=== PATIENT | female | born 1970 | race Caucasian/White ===

== ENCOUNTER 2019-06-03 16:19 | Emergency (ER) | payer OTHER ==
[~2019-06-03] VITALS: Ht 165.1 cm; Wt 72.6 kg
[2019-06-03 16:31] VITALS: BP_SYST 141
--- NOTE | 2019-06-03 17:56 | NUR ---
Patient to ER bed 1 to gown for evaluation. Side rails up. Report given to Fox REZA.
--- NOTE | 2019-06-03 18:05 | NUR ---
PATIENT CAME IN COMPLAINING OF PAIN TO RIGHT SHOULDER FOR ABOUT ONE MONTH. PATIENT COMPLAINING MORE OF DISCOMFORT AT 4/10. PATIENT HAS NOT TAKEN ANYTHING FOR PAIN TODAY BUT TAKES IBUPROFEN WHEN SEVERE PAIN. PATIENT DENIES TRAMA OR INJURY TO SHOULDER. SHOULDER TENDER TO TOUCH. PATIENT DENIES SOB, NAUSEA, AND VOMITING. PATIENT ALERT AND ORIENTED X4.
[2019-06-03] MEDS ORDERED: DEXAMETHASONE SOD PHOSPHATE 10 MG/ML VIAL IM ONE (18:15)
[2019-06-03] MEDS ORDERED: KETOROLAC TROMETHAMINE 60 MG/2 ML VIAL IM ONE (18:15)
--- NOTE | 2019-06-03 18:41 | NUR ---
PATIENT LEFT TO [facility] IN STABLE CONDITION.
--- NOTE | 2019-06-03 18:48 | NUR ---
PATIENT BACK FROM [facility] IN STABLE CONDITION.
--- NOTE | 2019-06-03 19:12 | NUR ---
Patient given written and verbal discharge instructions and verbalizes understanding. ER MD discussed with patient the results and treatment provided. Patient in stable condition. ID arm band removed. Rx of tramadol and flexeril given. Patient educated on pain management and to follow up with PMD. Pain Scale 2/10. Opportunity for questions provided and answered. Medication side effect fact sheet provided.
[2019-06-03 19:14] VITALS: BP_SYST 141
== END 2019-06-03 19:13 | disposition home or self-care (01) ==
LOC: SED 16:19
DX: M75.101 Unspecified rotator cuff tear or rupture of right shoulder, not specified as traumatic (principal); M50.30 Other cervical disc degeneration, unspecified cervical region; R03.0 Elevated blood-pressure reading, without diagnosis of hypertension
CPT/HCPCS: 72040; 73030; 81025; 93005; 96372; 99283; J1100; J1885

== ENCOUNTER 2019-07-18 19:20 | Emergency (ER) | payer OTHER, MEDICAID ==
[~2019-07-18] VITALS: Ht 167.6 cm; Wt 72.6 kg
[2019-07-18 20:06] VITALS: BP_SYST 132
[2019-07-18] MEDS ORDERED: ACETAMINOPHEN 325 MG TABLET PO ONE (22:15)
[2019-07-18] MEDS ORDERED: DIPH-TET-PERTUS Vaccine 0.5 ML VIAL (ADACEL) I.M. ONE (22:30)
[2019-07-18 22:40] VITALS: BP_SYST 127
== END 2019-07-18 22:40 | disposition home or self-care (01) ==
LOC: SED 19:20
DX: S61.210A Laceration without foreign body of right index finger without damage to nail, initial encounter (principal); W26.8XXA Contact with other sharp object(s), not elsewhere classified, initial encounter; Y93.89 Activity, other specified; Y92.89 Other specified places as the place of occurrence of the external cause; Y99.8 Other external cause status
CPT/HCPCS: 90715; 99283

== ENCOUNTER 2019-11-25 09:34 | Emergency (ER) | payer OTHER, MEDICAID ==
[~2019-11-25] VITALS: Ht 165.1 cm; Wt 74.4 kg
[2019-11-25 09:49] VITALS: BP_SYST 137
--- NOTE | 2019-11-25 09:57 | NUR ---
Patient to ER bed 6 to gown for evaluation. Side rails up. Report given to JUAQUIN Jiménez.
--- NOTE | 2019-11-25 10:00 | NUR ---
Patient arrived in the ED c/o elevated BP readings at home that are not relieved with medication. Patient stated she's also having left arm pain and buzzing on the left ear. Denied any chest pain or shortness of breath. Denied any fevers, nausea, vomiting, or chills. Patient is alert and oriented x4, respirations even and unlabored, speaking in full sentences, ambulating with a steady gait. VSS, pain level 3/10. Informed of wait time. Instructed to notify ED staff for any changes in condition or worsening of symptoms. Patient verbalized understanding.
--- NOTE | 2019-11-25 10:12 | NUR ---
ER Dr. Mckeon at bedside examining patient.
--- NOTE | 2019-11-25 11:32 | NUR ---
Patient given written and verbal discharge instructions and verbalizes understanding. ER MD discussed with patient the results and treatment provided. Patient in stable condition. ID arm band removed. Rx of Macrobid and Levothyroxine given. Patient educated on pain management and to follow up with PMD. Pain Scale 0/10. Opportunity for questions provided and answered. Medication side effect fact sheet provided.
[2019-11-25 11:33] VITALS: BP_SYST 129
== END 2019-11-25 11:33 | disposition home or self-care (01) ==
LOC: SED 09:34
DX: N39.0 Urinary tract infection, site not specified (principal); J45.909 Unspecified asthma, uncomplicated; E07.9 Disorder of thyroid, unspecified
CPT/HCPCS: 81002; 99283